=== PATIENT | male | born 1965 | race Caucasian/White ===

== ENCOUNTER 2017-01-31 19:46 | Emergency (ER) | payer OTHER ==
[~2017-01-31] VITALS: Ht 185.4 cm; Wt 79.4 kg
[2017-01-31] MEDS ORDERED: XANAX2 MG (20:38)
[2017-01-31] MEDS ORDERED: NORCO 5-325 TA1 EACH PO (21:38)
== END 2017-01-31 22:10 | disposition home or self-care (01) ==
LOC: ED 19:46
PROC: 2W3BX1Z Immobilization of Left Upper Arm using Splint (ICD-10-PCS; principal; 2017-01-31)
DX: S52.122A Displaced fracture of head of left radius, initial encounter for closed fracture (principal); E03.9 Hypothyroidism, unspecified; Z87.891 Personal history of nicotine dependence; Z88.2 Allergy status to sulfonamides; Z96.653 Presence of artificial knee joint, bilateral; Z79.899 Other long term (current) drug therapy; W18.30XA Fall on same level, unspecified, initial encounter
CPT/HCPCS: 29105; 73080; 99283

== ENCOUNTER 2024-04-22 06:00 | Day surgery (SDC) | payer BC ==
[2024-04-14 08:14] VITALS: BP 113/77
[~2024-04-22] VITALS: Ht 182.9 cm; Wt 80.9 kg
[~2024-04-22 06:00] MED LIST: BUDESONIDE EC3 MG PO; LACTATED RINGER'S 1,000 ML IV SCH; LEVOTHYROXINE112 MCG PO; LEVOTHYROXINE125 MCG PO; NORCO 5-325 TA1 EACH PO; XANAX2 MG
[2024-04-22 06:06] VITALS: BP 112/74
[2024-04-22] MEDS ORDERED: VITAMIN D350 MCG PO (06:09)
[2024-04-22] MEDS ORDERED: HEParin SOD (PORCINE) 5,000 UNIT/0.5 ML SYR SUB-Q SCH (07:00)
[2024-04-22] MEDS ORDERED: IBLOOD GLUCOSE TEST STRIP 1 EA TEST VI PRN ×2 (07:00→08:45)
[2024-04-22] MEDS ORDERED: LIDOCAINE HCL 1% 5 ML SDV INJ ONE (07:00)
[2024-04-22] MEDS ORDERED: CEFAZOLIN SODIUM 2 GM/20 ML SYR IV SCH (07:00)
[2024-04-22] MEDS ORDERED: DEXAMETHASONE SOD PHOS 4 MG/ML VIAL ONE ×2 (07:08→07:35)
[2024-04-22] MEDS ORDERED: Ropivacaine HCl 0.5% 30 ML VIAL ONE (07:08)
[2024-04-22] MEDS ORDERED: MIDAZOLAM HCL 2 MG/2 ML VIAL ONE (07:08)
[2024-04-22] MEDS ORDERED: dexmedeTOMIDine HCl 200 MCG/2 ML VIAL ONE (07:08)
[2024-04-22] MEDS ORDERED: fentaNYL citrate 100 MCG/2 ML VIAL ONE (07:08)
[2024-04-22] MEDS ORDERED: SODIUM CHLORIDE 0.9% 20 ML IV ONE (07:08)
[2024-04-22] MEDS ORDERED: LIDOCAINE HCL 2% 5 ML SDV ONE ×3 (07:16→07:48)
[2024-04-22] MEDS ORDERED: propofoL 200 MG/20 ML VIAL ONE (07:16)
[2024-04-22] MEDS ORDERED: KETOROLAC TROMETHAMINE 30 MG/ML VIAL ONE (07:35)
[2024-04-22] MEDS ORDERED: ondansetron HCL 4 MG/2 ML VIAL ONE (07:35)
[2024-04-22] MEDS ORDERED: ACETAMINOPHEN 1,000 MG/100 ML VIAL ONE (07:35)
--- NOTE | 2024-04-22 07:37 | NUR ---
PT NOT AVAILABLE FOR VISIT. PROVIDED PRAYER.
[2024-04-22] MEDS ORDERED: ePHEDrine sulfate 50 MG/ML AMP ONE (08:01)
[2024-04-22] MEDS ORDERED: ondansetron HCL 4 MG/2 ML VIAL IV PRN (08:45)
[2024-04-22] MEDS ORDERED: fentaNYL citrate 50 MCG/ML SDV IV PRN (08:45)
[2024-04-22] MEDS ORDERED: NALOXONE HCL 0.4 MG SYR IV PRN ×2 (08:45→09:15)
[2024-04-22] MEDS ORDERED: IBUPROFEN600 MG PO (09:10)
[2024-04-22] MEDS ORDERED: OXYCODON-ACETA1 EAC2 PO (09:10)
[2024-04-22] MEDS ORDERED: ACETAMINOPHEN500 MG PO (09:10)
--- NOTE | 2024-04-22 09:13 | NUR ---
04/22/24 09 Pratibha Lopez 0856 PT ARRIVED IN PACU NON RESPONSIVE TO NOXIOUS STIMULI. 912 PT REACTIVE. NO C/O'S.
[2024-04-22] MEDS ORDERED: IBUPROFEN 600 MG TAB PO PRN (09:15)
[2024-04-22] MEDS ORDERED: ACETAMINOPHEN 500 MG TAB PO PRN (09:15)
[2024-04-22] MEDS ORDERED: LACTATED RINGER'S 1,000 ML IV SCH (09:15)
[2024-04-22] MEDS ORDERED: OXYCODONE/APAP 7.5/325 TAB PO PRN (09:15)
[2024-04-22 09:38] VITALS: BP 113/74
--- NOTE | 2024-04-22 09:46 | NUR ---
patient returns to treatment room from PACU via bed. report taken from LUIS Cheatham. Patient reports feeling well. denies any pain or nausea. water and jell-o provided to patient. hard script given to patient's partner per his request so that she can drop it off at the pharmacy to get it filled. vital signs obtained and wdl. dressing to left groin is clean, dry, and intact. patient has no concernes and denies needing anything additional at this time. bed in lowest position, call light within reach.
[2024-04-22 10:44] VITALS: BP 113/68
--- NOTE | 2024-04-22 10:50 | NUR ---
patient has met all dicharge criteria at this time. patient still denies pain rating it a 0/10. he is not nauseated and has been able to eat a meal without difficulty. he is ambulating well and states that he is ready to go home. He has voided. Patient was allowed to get dressed. Discharge instructions then gone over with patient and his partner in detail. They both expressed understanding. Patient was then discharged from the unit via wheelchair where his partner is to take him home.
[2024-04-22] MEDS ORDERED: SEVOFLURANE 250 ML BTL INH ONE (14:44)
--- NOTE | 2024-04-23 12:25 | OR ---
[facility] [address], [place] [address] Signed DATE OF OPERATION: 04/22/2024 SURGEON: Alida Browning MD PREOPERATIVE DIAGNOSIS: Left inguinal hernia. POSTOPERATIVE DIAGNOSIS: Left direct inguinal hernia. PROCEDURE: Repair of left direct inguinal hernia with implantation of ProGrip Prolene mesh underlay technique. ANESTHESIA: General LMA; Arden Stewart, [employer] and local 10 mL of 0.25% Marcaine with epinephrine. INDICATION: This 58-year-old white man is a patient of RENEE Oliveira and referred with left inguinal hernia. Clinical exam shows a reducible left inguinal hernia. He does have a diagnosis of prostate cancer by biopsy considered "low-grade." He underwent colonoscopy by Dr. English in 2020, which was normal and by me in 2018, showing polyps and hyperplasia. He is admitted at this time to undergo repair of the left inguinal hernia. He understands the risk of bleeding, infection, recurrence and other unforeseen complications. Understanding this, he wished to proceed. FINDINGS: An ilioinguinal and iliohypogastric nerve branches were identified and well preserved. A direct hernia was found. There was no indirect sac. Repair consisted of invagination of the direct hernia with implantation of ProGrip Prolene mesh in an underlay technique. Care was taken to avoid injury to the ilioinguinal and iliohypogastric nerves. The tails of the graft were carried around the cord laterally with all due care avoiding excessive tension. DESCRIPTION OF PROCEDURE: The patient was brought to the operating room and given general LMA type anesthetic. Preoperative antibiotic Ancef was given and sequential compression device stockings were used. The lower abdomen was clipped and prepared with chlorhexidine solution and draped sterilely. A small incision was made cephalad to the pubic tubercle. Dissection was carried through the subcutaneous tissue including Elio's layer. The external oblique Electronically Signed By: ALIDA RBOWNING MD 04/23/24 1225 PATIENT NAME: MENDEZ JOINER OPERATIVE REPORT DATE OF : 61 REPORT #: [id number] PHYSICIAN: ALIDA BROWNING MD PCP: CHEVY AMADO MD REPORT IS CONFIDENTIAL AND NOT TO BE RELEASED WITHOUT AUTHORIZATION [facility] [address], [place] [address] Signed was identified and incised along its fibers. The ilioinguinal and iliohypogastric nerve branches were identified, dissected free from the cremasteric muscle fibers and reflected medially around the external oblique, which was secured with hemostats. With blunt and electrocautery dissection, the cord was freed from the canal and encircled with a Arash drain. There was no clear evidence of indirect sac. The cremasteric muscle fibers were incised transversely around the cord affirming that the hernia itself was a direct type and noted to be medial to the inferior epigastric vessels. The attenuated fibers of the fascia of the transversalis were incised with electrocautery and the properitoneal fat bluntly . The segment of Prolene ProGrip mesh was cut to an elliptical configuration and secured with interrupted 2-0 Prolene suture in the properitoneal space. A defect was cut in the graft to accommodate the cord and the tails of the graft were carefully secured laterally, avoiding excessive tightness around the cord itself and definitely avoiding encumbrance of the ilioinguinal nerve branch. 10 mL of 0.25% Marcaine with epinephrine was injected locally. The nerves were replaced into the inguinal canal and the external oblique reapproximated with running 2-0 Vicryl. Elio layer was reapproximated with interrupted 2-0 Vicryl and the skin closed with running subcuticular 3-0 Vicryl. Steri-Strips were applied as was an Acticoat dressing. He tolerated the procedure well, was extubated without problem, taken to the recovery room in good condition. Blood loss was minimal. Complications none. MD EMBER Sands/MODL /[id number] cc: RENEE Oliveira MD Copies: WESTON KOCH RUSSELL BARR MD ~ Electronically Signed By: ALIDA BROWNING MD 04/23/24 1225 PATIENT NAME: MENDEZ JOINER OPERATIVE REPORT DATE OF : 61 REPORT #: [id number] PHYSICIAN: ALIDA BROWNING MD PCP: CHEVY AMADO MD REPORT IS CONFIDENTIAL AND NOT TO BE RELEASED WITHOUT AUTHORIZATION
== END 2024-04-22 10:51 | disposition home or self-care (01) ==
LOC: DS 06:00
PROVIDERS: ATTEND Surgery
PROC: 0YU60JZ Supplement Left Inguinal Region with Synthetic Substitute, Open Approach (ICD-10-PCS; principal; 2024-04-22 07:30)
DX: K40.90 Unilateral inguinal hernia, without obstruction or gangrene, not specified as recurrent (principal); K52.831 Collagenous colitis; E03.9 Hypothyroidism, unspecified; Z79.890 Hormone replacement therapy; Z79.899 Other long term (current) drug therapy; Z88.2 Allergy status to sulfonamides; Z85.46 Personal history of malignant neoplasm of prostate
CPT/HCPCS: 00830; 64486; 76942; C1781; J0131; J0690; J1100; J1644; J1885; J2003; J2250; J2405; J2704; J2795; J3010; J7121